=== PATIENT | female | born 1945 | race Caucasian/White ===

== ENCOUNTER 2016-12-06 11:55 | Outpatient (CLI) | payer MEDICARE, OTHER | END 2016-12-06 11:56 | disposition home or self-care (01) | DX: R73.01 Impaired fasting glucose (principal); N62 Hypertrophy of breast; D50.9 Iron deficiency anemia, unspecified; R70.0 Elevated erythrocyte sedimentation rate ==

== ENCOUNTER 2017-08-01 12:36 | Outpatient (CLI) | payer MEDICARE, OTHER | END 2017-08-01 12:37 | disposition home or self-care (01) | LOC: LAB 12:36 | PROVIDERS: ATTEND Family Medicine | DX: N39.0 Urinary tract infection, site not specified (principal) | CPT/HCPCS: 87086 ==

== ENCOUNTER 2018-01-13 08:00 | Outpatient (CLI) | payer MEDICARE, OTHER ==
[2018-01-13 19:20] LABS: BASOPHILS # (AUTO) 0.1 10^3/uL (0.0-0.1); BASOPHILS % (AUTO) 0.7 %; EOSINOPHILS # (AUTO) 0.6 10^3/uL (0.0-0.7); EOSINOPHILS % (AUTO) 5.7 %; HGB - HEMOGLOBIN 10.7 g/dL (12.0-16.0); LYMPHOCYTES # (AUTO) 2.2 10^3/uL (1.5-3.5); LYMPHOCYTES % (AUTO) 21.9 %; MEAN CORPUSCULAR HEMOGLOBIN 26.6 pg (27.0-31.0); MEAN CORPUSCULAR HGB CONC 32.7 g/dL (32.0-36.0); MEAN CORPUSCULAR VOLUME 81.4 fL (81.0-99.0); MEAN PLATELET VOLUME 6.8 fL (7.9-10.8); MONOCYTES # (AUTO) 0.6 10^3/uL (0.0-1.0); MONOCYTES % (AUTO) 6.3 %; NEUTROPHILS # (AUTO) 6.6 10^3/uL (1.5-6.6); NEUTROPHILS % (AUTO) 65.4 %; PLT - PLATELET COUNT 355 10^3/uL (130-450); RED BLOOD COUNT 4.01 10^6/uL (4.20-5.40); WHITE BLOOD COUNT 10.1 x10^3/uL (4.8-10.8)
[2018-01-13 19:48] LABS: ALBUMIN/GLOBULIN RATIO 1.1 (1.0-2.2); ALKALINE PHOSPHATASE 65 IU/L (42-121); ALT ALANINE AMINOTRANSFERASE 22 IU/L (10-60); AST ASPARTATE AMINOTRANSFERASE 25 IU/L (10-42); BILIRUBIN,TOTAL 0.3 mg/dL (0.2-1.0); BUN - BLOOD UREA NITROGEN 18 mg/dL (6-20); CALCIUM 8.9 mg/dL (8.5-10.3); CARBON DIOXIDE - CO2 28 mmol/L (21-32); CHLORIDE 99 mmol/L (101-111); CHOL/HDL RATIO 7.5 (<4.4); CHOLESTEROL 218 mg/dL; CREATININE 0.9 mg/dL (0.4-1.0); GFR - MDRD 61 (>89); GLUCOSE 94 mg/dL (70-100); HDL CHOLESTEROL 29 mg/dL; SODIUM 134 mmol/L (135-145); TOTAL PROTEIN 7.7 g/dL (6.7-8.2)
[2018-01-13 19:55] LABS: HB2 TOTAL 11.7 g/dL; HEMOGLOBIN A1C 0.4 g/dL; HEMOGLOBIN A1C % 5.3 % (4.6-6.2)
[2018-01-13 20:10] LABS: LDL CHOLESTEROL,DIRECT 85 mg/dL; LDLD/HDL RATIO 2.9 (<4.4)
== END 2018-01-13 23:59 | disposition home or self-care (01) ==
LOC: LAB.WCP 08:00
PROVIDERS: ATTEND Family Medicine
DX: D50.9 Iron deficiency anemia, unspecified (principal); E78.5 Hyperlipidemia, unspecified; R73.01 Impaired fasting glucose
CPT/HCPCS: 36415; 80053; 80061; 83036; 83721; 85025

== ENCOUNTER 2018-02-01 15:00 | Outpatient (CLI) | payer MEDICARE, OTHER | END 2018-02-01 15:01 | disposition home or self-care (01) | LOC: LAB.R 15:00 | PROVIDERS: ATTEND Physician Assistant | DX: R10.9 Unspecified abdominal pain (principal) | CPT/HCPCS: 87086 ==

== ENCOUNTER 2018-02-01 15:21 | Outpatient (CLI) | payer MEDICARE, OTHER ==
[2018-02-01 19:10] LABS: BASOPHILS % (AUTO) 0.3 %; EOSINOPHILS % (AUTO) 3.4 %; HGB - HEMOGLOBIN 9.7 g/dL (12.0-16.0); LYMPHOCYTES % (AUTO) 8.2 %; MEAN CORPUSCULAR HEMOGLOBIN 26.1 pg (27.0-31.0); MEAN CORPUSCULAR HGB CONC 31.7 g/dL (32.0-36.0); MEAN CORPUSCULAR VOLUME 82.5 fL (81.0-99.0); MEAN PLATELET VOLUME 6.7 fL (7.9-10.8); MONOCYTES % (AUTO) 4.5 %; NEUTROPHILS % (AUTO) 83.6 %; PLT - PLATELET COUNT 575 10^3/uL (130-450); RED BLOOD COUNT 3.71 10^6/uL (4.20-5.40); RED CELL DISTRIBUTION WIDTH 14.9 % (12.0-15.0); WHITE BLOOD COUNT 20.9 x10^3/uL (4.8-10.8)
[2018-02-01 19:12] LABS: ABNORMAL LYMPHS % (MANUAL) 0 %
[2018-02-01 19:19] LABS: ALBUMIN 3.6 g/dL (3.2-5.5); ALBUMIN/GLOBULIN RATIO 0.8 (1.0-2.2); BILIRUBIN,TOTAL 0.4 mg/dL (0.2-1.0); CALCIUM 9.2 mg/dL (8.5-10.3); CREATININE 1.2 mg/dL (0.4-1.0); TOTAL PROTEIN 8.2 g/dL (6.7-8.2)
[2018-02-01 19:33] LABS: BAND NEUTROPHILS % (MANUAL) 4 %; EOSINOPHILS # (MANUAL) 0.6 10^3/uL (0-0.7); LYMPHOCYTES # (MANUAL) 1.3 10^3/uL (1.5-3.5); LYMPHOCYTES % (MANUAL) 6 %; MONOCYTES # (MANUAL) 0.6 10^3/uL (0.0-1.0); MYELOCYTES % (MANUAL) 1 %; NEUTROPHILS # (MANUAL) 18.2 10^3/uL (1.5-6.6); NEUTROPHILS % (MANUAL) 83 %
[2018-02-01 19:34] LABS: DIFFERENTIAL COMMENT MANUAL DIFFERENTIAL; PLATELET ESTIMATE, MANUAL INCREASED (>450,000) (NORMAL); PLATELET MORPHOLOGY NORMAL APPEARANCE (NORMAL); RBC MORPHOLOGY (MULTIPLE) 2+ POLYCHROMASIA (NORMAL)
== END 2018-02-01 15:22 | disposition home or self-care (01) ==
LOC: LAB.WCP 15:21
PROVIDERS: ATTEND Physician Assistant
DX: R10.9 Unspecified abdominal pain (principal)
CPT/HCPCS: 36415; 80053; 83690; 85025; 87086

== ENCOUNTER 2018-02-02 10:45 | Outpatient (CLI) | payer MEDICARE, OTHER ==
[2018-02-02] MEDS ORDERED: IOPAMIDOL-300 50 ML VIAL ONE (10:59)
[2018-02-02] MEDS ORDERED: IOPAMIDOL-300 100 ML VIAL ONE (10:59)
[2018-02-02] MEDS ORDERED: IOPAMIDOL-300 50 ML VIAL PO ONE (13:33)
[2018-02-02] MEDS ORDERED: IOPAMIDOL-300 100 ML VIAL IVP ONE (13:33)
--- NOTE | 2018-02-02 13:54 | CT Report ---
CT ABDOMEN AND PELVIS WITH CONTRAST: 02/02/2018 CLINICAL INDICATION: Abdominal pain. TECHNIQUE: Axial CT images of the abdomen and pelvis were obtained with 50 mL Isovue 300 intravenously as well as oral contrast, due to the patient's renal dysfunction. COMPARISON: No previous CT is available for comparison. FINDINGS: Limited evaluation of the lung bases is unremarkable. ABDOMEN: The liver, spleen, pancreas, kidneys and adrenal glands appear unremarkable. The patient is status post cholecystectomy. There is abnormal colonic wall thickening at the hepatic flexure, suspicious for tumor, and there are multiple enlarged lymph nodes in the right mid to lower abdomen, with the largest measuring 2.2 x 1.8 cm. The appearance is suspicious for colon cancer with stephanie involvement. No small bowel dilatation, free gas, or free fluid is present. PELVIS: A few sigmoid diverticula are present, without CT evidence of diverticulitis. The patient is status post hysterectomy. Trace free fluid is present in the pelvis. A small paraumbilical hernia is present, containing fat, without evidence of bowel herniation. No pelvic adenopathy is seen. Osseous structures demonstrate degenerative changes. IMPRESSION: ABNORMAL WALL THICKENING IN THE HEPATIC FLEXURE OF THE COLON, WITH ADJACENT ADENOPATHY, SUSPICIOUS FOR COLON CANCER WITH STEPHANIE INVOLVEMENT. CT DOSE REDUCTION STATEMENT In accordance with CT protocol optimization, one or more of the following dose reduction techniques were utilized for this exam: automated exposure control, adjustment of mA and/or KV based on patient size, or use of iterative reconstructive technique. TD: 02/02/2018 13:53
== END 2018-02-02 10:46 | disposition home or self-care (01) ==
LOC: DI 10:45
PROVIDERS: ATTEND Family Medicine
DX: K63.89 Other specified diseases of intestine (principal); R59.0 Localized enlarged lymph nodes
CPT/HCPCS: 74177; Q9967

== ENCOUNTER 2018-02-08 08:00 | Outpatient (CLI) | payer MEDICARE, OTHER | END 2018-02-08 08:01 | disposition home or self-care (01) | LOC: LAB.R 08:00 | PROVIDERS: ATTEND Surgery | DX: R19.7 Diarrhea, unspecified (principal) | CPT/HCPCS: 87493 ==

== ENCOUNTER 2018-02-13 09:59 | Day surgery (SDC) | payer MEDICARE, OTHER ==
[2018-02-13] MEDS ORDERED: LACTATED RINGERS 1,000 ML IV ONE (10:16)
[2018-02-13] MEDS ORDERED: fentaNYL 100 MCG/2 ML VIAL IVP ONE (11:53)
[2018-02-13] MEDS ORDERED: MIDAZOLAM 2 MG/2 ML VIAL IVP ONE (11:53)
[2018-02-13 12:36] VITALS: BP 123/51
== END 2018-02-13 10:00 | disposition home or self-care (01) ==
LOC: SDS 09:59
PROVIDERS: ATTEND Surgery
PROC: 0DBL8ZX Excision of Transverse Colon, Via Natural or Artificial Opening Endoscopic, Diagnostic (ICD-10-PCS; 2018-02-13)
PROC: 0DBK8ZX Excision of Ascending Colon, Via Natural or Artificial Opening Endoscopic, Diagnostic (ICD-10-PCS; principal; 2018-02-13 11:00)
DX: R19.00 Intra-abdominal and pelvic swelling, mass and lump, unspecified site (principal); R10.11 Right upper quadrant pain; R10.13 Epigastric pain; R19.4 Change in bowel habit; I10 Essential (primary) hypertension; K21.9 Gastro-esophageal reflux disease without esophagitis; D64.9 Anemia, unspecified; Z87.891 Personal history of nicotine dependence; K64.8 Other hemorrhoids; K59.8 Other specified functional intestinal disorders
CPT/HCPCS: 45380; J7120

== ENCOUNTER 2018-03-13 12:13 | Outpatient (CLI) | payer MEDICARE, OTHER | END 2018-03-13 12:14 | disposition critical access hospital (66) | LOC: EMS 12:13 | PROVIDERS: ATTEND Surgery | DX: R19.7 Diarrhea, unspecified (principal); R11.2 Nausea with vomiting, unspecified; R53.1 Weakness | CPT/HCPCS: A0425; A0427 ==

== ENCOUNTER 2018-03-13 12:27 | Emergency (ER) | payer MEDICARE, OTHER ==
[2018-03-13] MEDS ORDERED: SODIUM CHLORIDE 0.9% 1,000 ML IV ONE ×3 (12:49→15:11)
[2018-03-13 13:31] LABS: BASOPHILS # (AUTO) 0.1 10^3/uL (0.0-0.1); BASOPHILS % (AUTO) 0.3 %; EOSINOPHILS # (AUTO) 0.2 10^3/uL (0.0-0.7); EOSINOPHILS % (AUTO) 1.1 %; HGB - HEMOGLOBIN 7.6 g/dL (12.0-16.0); LYMPHOCYTES # (AUTO) 0.9 10^3/uL (1.5-3.5); MEAN CORPUSCULAR HEMOGLOBIN 24.4 pg (27.0-31.0); MEAN CORPUSCULAR HGB CONC 31.7 g/dL (32.0-36.0); MEAN PLATELET VOLUME 6.3 fL (7.9-10.8); MONOCYTES # (AUTO) 1.1 10^3/uL (0.0-1.0); MONOCYTES % (AUTO) 5.1 %; NEUTROPHILS % (AUTO) 89.5 %; PLT - PLATELET COUNT 463 10^3/uL (130-450); RED BLOOD COUNT 3.12 10^6/uL (4.20-5.40); WHITE BLOOD COUNT 21.2 x10^3/uL (4.8-10.8)
[2018-03-13] MEDS ORDERED: ONDANSETRON 4 MG/2 ML VIAL IVP STA (13:45)
[2018-03-13] MEDS ORDERED: HYDROcod/ACETAM 5/325 MG TABLET PO STA (13:46)
[2018-03-13 13:47] LABS: ALBUMIN 3.3 g/dL (3.2-5.5); ALBUMIN/GLOBULIN RATIO 0.9 (1.0-2.2); BILIRUBIN,TOTAL 0.4 mg/dL (0.2-1.0); CALCIUM 8.2 mg/dL (8.5-10.3); CREATININE 1.2 mg/dL (0.4-1.0)
[2018-03-13 13:50] LABS: RBC MORPHOLOGY (MULTIPLE) 2+ ANISOCYTOSIS (NORMAL)
--- NOTE | 2018-03-13 13:50 | ED Physician Documentation ---
History of Present Illness - Stated complaint Stated Complaint: DIARRHEA - Chief complaint Chief Complaint: Abd Pain - History obtained from History obtained from: Patient - History of Present Illness Timing: How many weeks ago (1) Pain level max: 9 Pain level now: 9 Improved by: nothing Worsened by: nothing - Additonal information Additional information: Patient is a 72-year-old female who presents to the emergency department with nausea, vomiting and diarrhea for the past week. 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 No fevers. No black or bloody stool. States had a colonoscopy approximately 2 weeks ago that showed ulcerative colitis. States she has been on hydrocodone for approximately 20 years for her back. States her pain is worse than usual, but in the same spots. No numbness or tingling. No lightheadedness or dizziness. No syncope or near syncope. Review of Systems Ten Systems: 10 systems reviewed and negative Constitutional: denies: Fever, Chills Ears: denies: Ear pain Nose: denies: Rhinorrhea / runny nose, Congestion Throat: denies: Sore throat Cardiac: denies: Chest pain / pressure Respiratory: denies: Cough, Wheezing GI: reports: Nausea, Vomiting, Diarrhea. denies: Abdominal Pain, Hematemesis, Bloody / black stool Skin: denies: Rash Musculoskeletal: denies: Neck pain, Back pain Neurologic: denies: Headache PD PAST MEDICAL HISTORY - Past Medical History Past Medical History: Yes Cardiovascular: Hypertension, High cholesterol Respiratory: Asthma Neuro: None Endocrine/Autoimmune: None GI: GERD, Hemorrhoids : Incontinence HEENT: Glaucoma, Macular degeneration Psych: Depression Musculoskeletal: Osteoarthritis, Scoliosis, Chronic back pain Derm: None - Past Surgical History Past Surgical History: Yes General: Cholecystectomy, Other Ortho: Knee replacement /LOBSTER CATCHER: Hysterectomy HEENT: Tonsil/Adenoidectomy - Present Medications Home Medications: Ambulatory Orders Medication Instructions Recorded Confirmed Aspirin [Aspir 81] 162 mg PO DAILY 04/18/13 02/13/18 Diclofenac Sodium 150 mg PO DAILY 04/18/13 02/13/18 Felodipine [Plendil] 5 mg PO DAILY 04/18/13 02/13/18 Furosemide [Lasix] 20 mg PO DAILY 04/18/13 02/13/18 HYDROcod/ACETAM 5/325 [Vicodin 1 - 2 ea PO Q6H PRN 04/18/13 02/13/18 5/325] Omeprazole [PriLOSEC] 20 mg PO DAILY 04/18/13 02/13/18 Potassium Chloride 10 meq PO BID 04/18/13 02/13/18 Pravastatin Sodium 40 mg PO DAILY 04/18/13 02/13/18 Sertraline [Zoloft] 150 mg PO DAILY 04/18/13 02/13/18 Valsartan [Diovan] 40 mg PO DAILY 04/18/13 02/13/18 Montelukast [Singulair] 10 mg PO QPM 06/26/13 02/13/18 Hydrocodone/Acetaminophen 1 - 2 each PO Q6H PRN #14 tablet 03/13/18 [Hydrocodon-Acetaminophen 5-325] Mesalamine 2.4 gm PO DAILY #14 tablet. 03/13/18 Ondansetron Odt [Zofran] 4 mg TL Q6H PRN #10 tablet 03/13/18 - Allergies Allergies/Adverse Reactions: Allergies Allergy/AdvReac Type Severity Reaction Status Date / Time Opioids - Morphine Analogues Allergy Edema Verified 03/13/18 12:50 sulfamethoxazole Allergy Hives Verified 03/13/18 12:50 [From Bactrim] trimethoprim [From Bactrim] Allergy Hives Verified 03/13/18 12:50 prednisone AdvReac Severe tachycardia Verified 03/13/18 12:50 - Social History Does the pt smoke?: Yes Smoking Status: Former smoker Does the pt drink ETOH?: No Does the pt have substance abuse?: No - Immunizations Immunizations are current?: Yes PD ED PE NORMAL - Vitals Vital signs reviewed: Yes - General General: Alert and oriented X 3, No acute distress - HEENT HEENT: PERRL, Moist mucous membranes - Neck Neck: Supple, no meningeal sign - Cardiac Cardiac: RRR, Strong equal pulses - Respiratory Respiratory: No respiratory distress, Clear bilaterally - Abdomen Abdomen: Soft, Non tender, Non distended - Back Back: No CVA TTP - Derm Derm: Warm and dry, No rash - Extremities Extremities: No calf tenderness / cord - Neuro Neuro: Alert and oriented X 3 - Psych Psych: Normal mood, Normal affect Results - Vitals Vitals: Vital Signs - 24 hr 03/13/18 03/13/18 03/13/18 12:30 14:53 16:32 Temperature 36.5 C Heart Rate 101 H 86 88 Respiratory 20 18 16 Rate Blood Pressure 132/67 H 100/38 L 104/56 L O2 Saturation 97 98 97 Oxygen O2 Source Room air - Labs Labs: Laboratory Tests 03/13/18 03/13/18 03/13/18 13:14 13:14 13:14 WBC 21.2 H RBC 3.12 L Hgb 7.6 L Hct 24.0 L MCV 77.0 L MCH 24.4 L MCHC 31.7 L RDW 15.0 Plt Count 463 H MPV 6.3 L Neut # 19.0 H Lymph # 0.9 L [place] # 1.1 H Eos # 0.2 Baso # 0.1 Absolute Nucleated RBC 0.01 Nucleated RBC % 0.0 Manual Slide Review Indicated RBC Morph Micro Appear 2+ ANISOCYTOSIS Sodium 134 L Potassium 2.6 L Chloride 96 L Carbon Dioxide 27 Anion Gap 11.0 BUN 18 Creatinine 1.2 H Estimated GFR (MDRD) 44 L Glucose 108 H Calcium 8.2 L Total Bilirubin 0.4 AST 13 ALT 10 Alkaline Phosphatase 105 Total Protein 7.0 Albumin 3.3 Globulin 3.7 Albumin/Globulin Ratio 0.9 L Lipase 26 Blood Type Blood Type Recheck A POSITIVE Antibody Screen 03/13/18 14:05 WBC RBC Hgb Hct MCV MCH MCHC RDW Plt Count MPV Neut # Lymph # [place] # Eos # Baso # Absolute Nucleated RBC Nucleated RBC % Manual Slide Review RBC Morph Micro Appear Sodium Potassium Chloride Carbon Dioxide Anion Gap BUN Creatinine Estimated GFR (MDRD) Glucose Calcium Total Bilirubin AST ALT Alkaline Phosphatase Total Protein Albumin Globulin Albumin/Globulin Ratio Lipase Blood Type A POSITIVE Blood Type Recheck Antibody Screen NEGATIVE PD MEDICAL DECISION MAKING - ED course Complexity details: reviewed old records, reviewed results, re-evaluated patient , considered differential, d/w patient, d/w family, d/w senior health consultant ED course: Patient is a 72-year-old female who presents to the emergency department with what appears to be narcotic withdrawal causing vomiting and diarrhea for the past week since running out of her Vicodin. She was given Zofran and IV fluids here. Able to keep down 2 tabs of Vicodin and her symptoms resolved. She was also unable to keep down her potassium for the past week and so her potassium was replaced here. She is increasingly anemic and this is been an issue for quite some time but is asymptomatic from this currently. Reviewed her recent colonoscopy with Dr. Guzman and he recommended that she be placed on mesalamine. I discussed with Dr. Engle, her primary care physician, who will see her in the morning at 0900 and agrees with placing her on mesalamine at this time as well. The patient is well-appearing, nontoxic. Tolerating p.o. without difficulty in the emergency department. We will have her follow-up with her doctor tomorrow. Patient does not want to be admitted to the hospital. Patient counseled regarding signs and symptoms for which I believe and urgent re-evaluation would be necessary. Patient with good understanding of and agreement to plan and is comfortable going home at this time This document was made in part using voice recognition software. While efforts are made to proofread this document, sound alike and grammatical errors may occur. Departure - Departure Disposition: 01 Home, Self Care Clinical Impression: Gastroenteritis, Narcotic withdrawal, Hypokalemia, Dehydration, Colitis Anemia Qualifiers: Anemia type: unspecified type Qualified Code(s): D64.9 - Anemia, unspecified Leukocytosis Qualifiers: Leukocytosis type: unspecified Qualified Code(s): D72.829 - Elevated white blood cell count, unspecified Condition: Good Instructions: ED Gastroenteritis Viral Follow-Up: Maik Engle DO [Primary Care Provider] - Tomorrow (at 0900) Prescriptions: Hydrocodone/Acetaminophen [Hydrocodon-Acetaminophen 5-325] 1 - 2 each PO Q6H PRN #14 tablet PRN Reason: pain Mesalamine 2.4 gm PO DAILY #14 tablet. Ondansetron Odt [Zofran] 4 mg TL Q6H PRN #10 tablet PRN Reason: Nausea / Vomiting Comments: Return if you worsen. Drink plenty of fluids. Follow up with Dr. Engle tomorrow at 9am. Do not drink alcohol or drive while on narcotic pain medicine. Note that many narcotic pain relievers also contain tylenol/acetaminophen. Please ensure that your total dose of acetaminophen from all sources does not exceed 3 grams (3000mg) per day. You may constipated on this medication, take a stool softener such as "Colace" twice a day while you are on it. Also recommend a eefy-ijf-hosseep laxative such as senna or MiraLAX any day that you do not have a bowel movement. If you received narcotic pain medication in the emergency department, do not drive or operate machinery for the next 24 hours Discharge Date/Time: 03/13/18 16:32
[2018-03-13] MEDS ORDERED: POTASSIUM BICARB 25 MEQ TABLET PO STA (15:11)
[2018-03-13 16:34] VITALS: BP 104/56
== END 2018-03-13 16:32 | disposition home or self-care (01) ==
LOC: EDUNIT# → ED 12:27
DX: K52.9 Noninfective gastroenteritis and colitis, unspecified (principal); F11.23 Opioid dependence with withdrawal; E87.6 Hypokalemia; E86.0 Dehydration; D72.829 Elevated white blood cell count, unspecified; I10 Essential (primary) hypertension; E78.00 Pure hypercholesterolemia, unspecified; Z96.659 Presence of unspecified artificial knee joint; Z79.82 Long term (current) use of aspirin
CPT/HCPCS: 36415; 80053; 83690; 85025; 86850; 86900; 86901; 96361; 96374; 99283; 99284; A9270

== ENCOUNTER 2018-03-27 11:29 | Outpatient (CLI) | payer MEDICARE, OTHER ==
[2018-03-27 11:51] LABS: BASOPHILS # (AUTO) 0.2 10^3/uL (0.0-0.1); BASOPHILS % (AUTO) 1.2 %; EOSINOPHILS # (AUTO) 0.4 10^3/uL (0.0-0.7); EOSINOPHILS % (AUTO) 3.3 %; HGB - HEMOGLOBIN 7.2 g/dL (12.0-16.0); LYMPHOCYTES # (AUTO) 2.3 10^3/uL (1.5-3.5); LYMPHOCYTES % (AUTO) 18.2 %; MEAN CORPUSCULAR HEMOGLOBIN 24.1 pg (27.0-31.0); MEAN CORPUSCULAR HGB CONC 31.7 g/dL (32.0-36.0); MEAN CORPUSCULAR VOLUME 76.1 fL (81.0-99.0); MEAN PLATELET VOLUME 6.4 fL (7.9-10.8); MONOCYTES # (AUTO) 0.7 10^3/uL (0.0-1.0); MONOCYTES % (AUTO) 5.1 %; NEUTROPHILS # (AUTO) 9.2 10^3/uL (1.5-6.6); NEUTROPHILS % (AUTO) 72.2 %; PLT - PLATELET COUNT 449 10^3/uL (130-450); RED BLOOD COUNT 2.99 10^6/uL (4.20-5.40); WHITE BLOOD COUNT 12.8 x10^3/uL (4.8-10.8)
[2018-03-27 12:15] LABS: % IRON SATURATION 15 % (20-50); IRON 38 ug/dL (28-170); TOTAL IRON BINDING CAPACITY 256 ug/dL (250-450); TRANSFERRIN 183 mg/dL (192-382)
[2018-03-27 12:30] LABS: FERRITIN 225.8 ng/mL (11.0-306.8)
== END 2018-03-27 11:30 | disposition home or self-care (01) ==
LOC: LAB 11:29
PROVIDERS: ATTEND Family Medicine
DX: D72.829 Elevated white blood cell count, unspecified (principal); D64.9 Anemia, unspecified
CPT/HCPCS: 36415; 81599; 82607; 82728; 83540; 84466; 85025; 88271; 88275